=== PATIENT | male | born 2000 | race Caucasian/White ===

== ENCOUNTER 2020-08-23 09:19 | Emergency (ER) | payer OTHER ==
[~2020-08-23 09:19] MED LIST: BACTRIM DS TAB1 EACH PO; BACTROBAN OINT22 GM EXT; DOXYCYCLINE HY100 MG PO; IBUPROFEN400 MG PO; IBUPROFEN800 MG PO; KEFLEX CAP 500500 MG PO; SUBOXONE 8 MG-1 EACH PO; SULFAMETHOXAZO1 EACH PO
[2020-08-23] MEDS ORDERED: KEFLEX CAP 500500 MG PO (11:04)
[2020-08-23] MEDS ORDERED: BACTRIM DS TAB1 EACH PO (11:04)
== END 2020-08-23 11:20 | disposition home or self-care (01) ==
LOC: ER1 09:19
DX: L03.114 Cellulitis of left upper limb (principal); F19.10 Other psychoactive substance abuse, uncomplicated; F17.200 Nicotine dependence, unspecified, uncomplicated
CPT/HCPCS: 73130; 99283

== ENCOUNTER 2020-10-15 19:35 | Emergency (ER) | payer OTHER | END 2020-10-15 20:43 | disposition left against medical advice (07) | LOC: ER1 19:35 | DX: L03.221 Cellulitis of neck (principal); R22.1 Localized swelling, mass and lump, neck; F17.210 Nicotine dependence, cigarettes, uncomplicated; F11.20 Opioid dependence, uncomplicated | CPT/HCPCS: 96365; 99283; Q9967 ==

== ENCOUNTER 2021-06-25 16:42 | Emergency (ER) | payer OTHER | END 2021-06-25 19:30 | disposition left against medical advice (07) | LOC: ER1 16:42 | DX: Z53.21 Procedure and treatment not carried out due to patient leaving prior to being seen by health care provider (principal) | CPT/HCPCS: 70450; 73030 ==